=== PATIENT | female | born 1990 | race Caucasian/White ===

== ENCOUNTER 2017-03-06 17:31 | Emergency (ER) | payer OTHER ==
[2017-03-06 17:37] VITALS: BP 124/78
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
== END 2017-03-06 18:02 | disposition home or self-care (01) ==
LOC: ER 17:31
DX: B86 Scabies (principal)
CPT/HCPCS: 99283